=== PATIENT | male | born 1960 | race Two or more races ===

== ENCOUNTER 2017-02-28 13:09 | Emergency (ER) | payer MEDICARE, MEDICAID ==
[~2017-02-28] VITALS: Ht 172.7 cm; Wt 67.0 kg
[~2017-02-28 13:09] MED LIST: KEPPRA; KLONOPIN; LACO100T2 PO; PREVACID
[2017-02-28 14:13] LABS: BASOPHILS % 0.7 % (0.0-2.0); HEMATOCRIT. 45.3 % (42.0-52.0); HEMOGLOBIN. 15.5 g/dL (14.0-18.0); LYMPHOCYTES % 19.7 % (20.0-50.0); MEAN CORPUSCULAR HEMOGLOBIN 30.8 pg (28.0-32.0); MEAN CORPUSCULAR VOLUME 89.9 fL (80.0-94.0); MEAN PLATELET VOLUME 7.5 fl (7.4-10.4); MONOCYTES % 9.8 % (2.0-8.0); NEUTROPHILS % 66.8 % (40.0-76.0); PLATELET 202 x1000/uL (130-400); RED BLOOD CELL COUNT 5.05 mill/uL (4.7-6.1)
[2017-02-28 14:18] LABS: CHLORIDE 105 mEq/L (98-107)
[2017-02-28 14:27] LABS: CARBON DIOXIDE 28 mEq/L (21-32); ETHANOL BLOOD < 10 mg/dL
[2017-02-28 14:28] LABS: CARBAMAZEPINE < 0.5 ug/mL (4-12); PHENOBARBITAL < 2.1 ug/mL (15.0-40.0); PHENYTOIN < 0.4 ug/mL (10-20)
[2017-02-28] MEDS ORDERED: LEVETIRACETAM 500MG TABLET PO ONE (15:00)
[2017-02-28] MEDS ORDERED: CLONAZEPAM 0.5MG TABLET PO ONE (15:00)
[2017-02-28 15:24] VITALS: BP 127/60
== END 2017-02-28 15:26 | disposition home or self-care (01) ==
LOC: ER 13:51
DX: R56.9 Unspecified convulsions (principal); H92.02 Otalgia, left ear; Z88.8 Allergy status to other drugs, medicaments and biological substances
CPT/HCPCS: 36415; 80053; 80156; 80165; 80184; 80185; 85025; 99284; G0482

== ENCOUNTER 2017-09-12 12:42 | Emergency (ER) | payer MEDICARE, MEDICAID ==
[~2017-09-12] VITALS: Ht 172.7 cm; Wt 80.0 kg
[2017-09-12 13:16] LABS: BASOPHILS % 0.7 % (0.0-2.0); EOSINOPHILS % 1.8 % (0.0-5.0); HEMATOCRIT. 44.4 % (42.0-52.0); HEMOGLOBIN. 15.2 g/dL (14.0-18.0); MEAN CORPUSCULAR HEMOGLOBIN 31.1 pg (28.0-32.0); MEAN CORPUSCULAR VOLUME 91.1 fL (80.0-94.0); MONOCYTES % 10.1 % (2.0-8.0); NEUTROPHILS % 67.4 % (40.0-76.0); PLATELET 205 x1000/uL (130-400); RED BLOOD CELL COUNT 4.87 mill/uL (4.7-6.1)
[2017-09-12 13:22] LABS: CHLORIDE 104 mEq/L (98-107)
[2017-09-12 13:30] LABS: CARBON DIOXIDE 33 mEq/L (21-32)
[2017-09-12 13:57] VITALS: BP 143/79
== END 2017-09-12 14:07 | disposition home or self-care (01) ==
LOC: ER 13:06
DX: G40.409 Other generalized epilepsy and epileptic syndromes, not intractable, without status epilepticus (principal); Z88.8 Allergy status to other drugs, medicaments and biological substances
CPT/HCPCS: 36415; 80053; 85025; 99284

== ENCOUNTER 2019-08-25 13:09 | Emergency (ER) | payer MEDICARE, MEDICAID ==
[~2019-08-25] VITALS: Ht 165.1 cm; Wt 69.0 kg
[2019-08-25] MEDS ORDERED: LORAZEPAM 1MG TABLET PO ONE (14:00)
[2019-08-25 16:06] VITALS: BP 126/86
== END 2019-08-25 16:00 | disposition home or self-care (01) ==
LOC: ER 13:58
DX: G40.909 Epilepsy, unspecified, not intractable, without status epilepticus (principal); G04.90 Encephalitis and encephalomyelitis, unspecified; Z88.6 Allergy status to analgesic agent; Z88.8 Allergy status to other drugs, medicaments and biological substances
CPT/HCPCS: 99283

== ENCOUNTER 2020-08-05 11:21 | Inpatient (IN) | payer MEDICARE, MEDICAID ==
[~2020-08-05] VITALS: Ht 167.6 cm; Wt 65.0 kg
[2020-08-05] MEDS ORDERED: SODIUM CHLORIDE 0.9% 1,000 ML IV ONE (11:45)
[2020-08-05] MEDS ORDERED: LEVETIRACETAM 1000MG PREMIX 100 ML IV ONE (12:15)
[2020-08-05] MEDS ORDERED: SODIUM CHLORIDE 0.9% 1000ML BAG (SEPSIS BOLUS) IV ONE (12:15)
[2020-08-05 13:37] LABS: HEMATOCRIT. 44.3 % (42.0-52.0); HEMOGLOBIN. 14.9 g/dL (14.0-18.0); MEAN CORPUSCULAR HEMOGLOBIN 30.7 pg (28.0-32.0); MEAN CORPUSCULAR VOLUME 91.5 fL (80.0-94.0); MEAN PLATELET VOLUME 7.2 fl (7.4-10.4); PLATELET 228 x1000/uL (130-400); RED BLOOD CELL COUNT 4.84 mill/uL (4.7-6.1); RED CELL DISTRIBUTION WIDTH 12.6 % (11.6-14.6)
[2020-08-05 13:46] LABS: CHLORIDE 104 mEq/L (98-107)
[2020-08-05 14:16] LABS: PLATELET ESTIMATE NORMAL
[2020-08-05 15:05] LABS: CLARITY URINE CLOUDY (CLEAR); COLOR URINE ORANGE (YELLOW); KETONES URINE NEGATIVE (NEGATIVE); LEUKOCYTE ESTERASE URINE 2+ (NEGATIVE); NITRITE URINE NEGATIVE (NEGATIVE); OCCULT BLOOD URINE 2+ (NEGATIVE); PH URINE 6.5 (4.5-8.0); PROTEIN URINE 2+ (NEGATIVE); SPECIFIC GRAVITY URINE 1.033 (1.005-1.030); UROBILINOGEN URINE 0.2 E.U./dL (0.2-1.0)
[2020-08-05] MEDS ORDERED: CEFTRIAXONE 1 G PREMIX 50 ML IV ONE (15:30)
[2020-08-05 15:51] LABS: *BARBITURATES SCREEN URINE NEGATIVE (NEGATIVE)
[2020-08-05 15:52] LABS: *BENZODIAZEPINES SCREEN URINE NEGATIVE (NEGATIVE); *COCAINE SCREEN URINE NEGATIVE (NEGATIVE); METHADONE URINE SCREEN NEGATIVE (NEGATIVE); OPIATES URINE SCREEN PRESUMTIVE POSITIVE (NEGATIVE); PHENCYCLIDINE URINE SCREEN NEGATIVE (NEGATIVE)
[2020-08-05 15:53] LABS: *AMPHETAMINES SCREEN URINE NEGATIVE (NEGATIVE); CANNABINOID URINE SCREEN NEGATIVE (NEGATIVE)
[2020-08-05] MEDS ORDERED: MAGNESIUM/ALUMINUM HYDROXIDE/SIMETHICONE 30ML UDC PO PRN (17:00)
[2020-08-05] MEDS ORDERED: DIPHENHYDRAMINE 50MG/ML VIAL IV PRN (17:00)
[2020-08-05] MEDS ORDERED: CLONIDINE 0.1MG TABLET PO PRN (17:00)
[2020-08-05] MEDS ORDERED: NA PHOS,M-B/NA PHOS,DI-BA ENEMA 118ML PR PRN (17:00)
[2020-08-05] MEDS ORDERED: GUAIFENESIN 200MG/10ML SUGAR FREE UDC PO PRN (17:00)
[2020-08-05] MEDS ORDERED: DOCUSATE SODIUM 100MG CAPSULE PO PRN (17:00)
[2020-08-05] MEDS ORDERED: ACETAMINOPHEN 325MG TABLET PO PRN (17:00)
[2020-08-05] MEDS ORDERED: ACETAMINOPHEN 650MG SUPP PR PRN ×2 (17:00)
[2020-08-05] MEDS ORDERED: ONDANSETRON HCL 4MG/2ML INJ IV PRN (17:00)
[2020-08-05] MEDS ORDERED: ACETAMINOPHEN 650MG/20.3ML UDC GT PRN ×2 (17:00)
[2020-08-06] MEDS ORDERED: NON FORMULARY PATIENT HOME MED XX SCH ×2 (08:15)
[2020-08-06 11:41] VITALS: BP 125/68
[2020-08-06] MEDS ORDERED: FELBAMATE 600 MG PO SCH ×2 (13:30→22:30)
[2020-08-06] MEDS ORDERED: CLONAZEPAM 0.5MG TABLET PO SCH ×2 (13:30→22:30)
[2020-08-07] MEDS ORDERED: FELBAMATE 600 MG PO SCH (06:30)
[2020-08-07] MEDS ORDERED: CLONAZEPAM 0.5MG TABLET PO SCH (06:30)
== END 2020-08-06 12:51 | disposition short-term general hospital (02) | DRG 871 ==
LOC: ER 11:35 → MICUSO 14:58 → EDBEDREQ 15:02
PROVIDERS: ADMIT Family Medicine; ATTEND Family Medicine
DX: A41.9 Sepsis, unspecified organism (principal); G93.41 Metabolic encephalopathy; G40.802 Other epilepsy, not intractable, without status epilepticus; N39.0 Urinary tract infection, site not specified; K40.20 Bilateral inguinal hernia, without obstruction or gangrene, not specified as recurrent; K44.9 Diaphragmatic hernia without obstruction or gangrene; K57.30 Diverticulosis of large intestine without perforation or abscess without bleeding; N40.0 Benign prostatic hyperplasia without lower urinary tract symptoms; R62.50 Unspecified lack of expected normal physiological development in childhood; Z88.8 Allergy status to other drugs, medicaments and biological substances; Z79.899 Other long term (current) drug therapy; Z87.442 Personal history of urinary calculi
CPT/HCPCS: 36415; 71045; 74176; 80053; 80305; 81003; 83605; 84443; 84484; 85025; 87077; 87186; 93005; 96365; 99285; J0696; J1200; J2405; J7030

== ENCOUNTER 2024-08-14 06:44 | Emergency (ER) | payer MEDICARE, MEDICAID ==
[~2024-08-14] VITALS: Ht 167.6 cm; Wt 64.4 kg
[2024-08-14 06:47] VITALS: TEMP 98.6; O2SAT 98
[2024-08-14] MEDS: ACETAMINOPHEN 325MG TABLET PO ONE (08:33)
[2024-08-14 08:44] LABS: BASOPHILS % 0.9 % (0.0-2.0); EOSINOPHILS % 1.9 % (0.0-5.0); HEMATOCRIT. 42.6 % (42.0-52.0); HEMOGLOBIN. 14.3 g/dL (14.0-18.0); LYMPHOCYTES % 18.8 % (20.0-50.0); MEAN CORPUSCULAR HEMOGLOBIN 31.5 pg (28.0-32.0); MEAN CORPUSCULAR HGB CONC 33.5 g/dL (31.0-37.0); MEAN CORPUSCULAR VOLUME 94.1 fL (80.0-94.0); MEAN PLATELET VOLUME 7.1 fl (7.4-10.4); MONOCYTES % 10.1 % (2.0-8.0); NEUTROPHILS % 68.3 % (40.0-76.0); PLATELET 251 x1000/uL (130-400); RED BLOOD CELL COUNT 4.53 mill/uL (4.7-6.1); RED CELL DISTRIBUTION WIDTH 13.1 % (11.6-14.6); WHITE BLOOD COUNT 4.7 x1000/uL (4.5-11.0)
[2024-08-14 08:58] LABS: CHLORIDE 107 mEq/L (98-107); POTASSIUM 3.8 mEq/L (3.5-5.1); SODIUM 142 mEq/L (136-145)
[2024-08-14 08:59] LABS: CALCIUM 9.8 mg/dL (8.7-10.4); CARBON DIOXIDE 27 mEq/L (21-32)
[2024-08-14 09:04] LABS: CREATININE 0.7 mg/dL (0.6-1.3); GLUCOSE 96 mg/dL (70-105); UREA NITROGEN BLOOD 15 mg/dL (9-23)
[2024-08-14 09:06] LABS: ALANINE AMINOTRANSFERASE 24 IU/L (10-49); ALBUMIN 4.3 g/dL (3.2-4.8); ASPARTATE AMINOTRANSFERASE 27 IU/L (<34); BILIRUBIN DIRECT 0.1 mg/dL (<=3.0); BILIRUBIN TOTAL 0.5 mg/dL (0.1-1.0); PROTEIN TOTAL 7.3 g/dL (6.0-8.3)
[2024-08-14] MEDS ORDERED: ACET-2708 MT (09:08)
[2024-08-14 09:30] VITALS: BP 135/64; PULSE 62; RESP 17; O2SAT 98
== END 2024-08-14 09:43 | disposition home or self-care (01) ==
LOC: ER 06:44
DX: S01.01XA Laceration without foreign body of scalp, initial encounter (principal); G40.909 Epilepsy, unspecified, not intractable, without status epilepticus; Z79.899 Other long term (current) drug therapy; Z98.890 Other specified postprocedural states; X58.XXXA Exposure to other specified factors, initial encounter; Y93.89 Activity, other specified; Y92.89 Other specified places as the place of occurrence of the external cause; Y99.8 Other external cause status
CPT/HCPCS: 29130; 36415; 73140; 80053; 80076; 85025; 99283; 99284

== ENCOUNTER 2025-02-04 18:05 | Inpatient (IN) | payer MEDICARE, MEDICAID ==
[~2025-02-04] VITALS: Ht 167.6 cm; Wt 54.9 kg
[~2025-02-04 18:05] MED LIST changes: +CETI10CA2 PO; +CLON0.5T4 PO; +ESCI-7 PO; +FINA5TAB11 PO; -KEPPRA; -KLONOPIN; +OMEP40CA20 PO; +PERA4TAB PO; -PREVACID; +TAMS-54 PO; +[UNRECOGNIZED DRUG - CODE] PO
[2025-02-04 19:00] VITALS: BP 120/70; PULSE 96; RESP 18; TEMP 36.8
[2025-02-04] MEDS ORDERED: NON FORMULARY MED XX SCH (19:15)
[2025-02-04] MEDS ORDERED: DEXTROSE 50% WATER 50ML SYRINGE IV PRN ×2 (19:15)
[2025-02-04] MEDS ORDERED: CLONIDINE 0.1MG TABLET PO PRN (19:15)
[2025-02-04] MEDS ORDERED: LORAZEPAM 2MG/ML UD SYRINGE IV PRN ×2 (19:55)
[2025-02-04] MEDS ORDERED: ACETAMINOPHEN 325MG TABLET PO PRN (19:55)
[2025-02-04] MEDS ORDERED: ACETAMINOPHEN 650MG SUPP PR PRN (19:56)
[2025-02-04] MEDS: PERAMPANEL 4 MG PO SCH (21:00)
[2025-02-04] MEDS: BLOOD SUGAR DIAGNOSTIC STRIP TEST SCH (21:00)
[2025-02-04] MEDS: METOPROLOL TARTRATE 25MG TABLET PO SCH (22:13)
[2025-02-04] MEDS: FAMOTIDINE 20MG/2ML VIAL IV SCH (22:14)
[2025-02-04] MEDS: ACETAMINOPHEN 325MG TABLET PO PRN (22:17)
[2025-02-04] MEDS: INSULIN LISPRO 100 UNITS/ML SUBCUT SCH (23:04)
[2025-02-05] MEDS: LACOSAMIDE 300 MG in SODIUM CHLORIDE 0.9% 100 ML IV SCH (00:01)
[2025-02-05] MEDS: FELBAMATE 600 MG PO SCH ×3 (07:04→13:19)
[2025-02-05 08:00] VITALS: BP 119/67; PULSE 95; RESP 18; TEMP 36.8; O2SAT 97
[2025-02-05] MEDS: ASPIRIN 81MG TABLET PO SCH (08:43)
[2025-02-05] MEDS: ENOXAPARIN 40MG/0.4ML SYR SUBCUT SCH (08:43)
[2025-02-05] MEDS: MAGNESIUM OXIDE 400MG TABLET PO SCH (08:47)
[2025-02-05 13:31] LABS: BASOPHILS % 0.9 % (0.0-2.0); EOSINOPHILS % 6.1 % (0.0-5.0); HEMATOCRIT. 39.0 % (42.0-52.0); HEMOGLOBIN. 13.0 g/dL (14.0-18.0); LYMPHOCYTES % 10.5 % (20.0-50.0); MEAN PLATELET VOLUME 7.7 fl (7.4-10.4); MONOCYTES % 8.7 % (2.0-8.0); NEUTROPHILS % 73.8 % (40.0-76.0); PLATELET 371 x1000/uL (130-400); RED BLOOD CELL COUNT 4.26 mill/uL (4.7-6.1); RED CELL DISTRIBUTION WIDTH 14.2 % (11.6-14.6)
[2025-02-05 14:14] LABS: CREATININE 0.7 mg/dL (0.6-1.3); UREA NITROGEN BLOOD 19 mg/dL (9-23)
[2025-02-05 14:16] LABS: ASPARTATE AMINOTRANSFERASE 19 IU/L (<34); BILIRUBIN TOTAL 0.3 mg/dL (0.1-1.0); PROTEIN TOTAL 6.4 g/dL (6.0-8.3)
[2025-02-05 20:00] VITALS: BP 114/61; PULSE 90; RESP 18; TEMP 36.2; O2SAT 96
[2025-02-06 06:40] LABS: HEMATOCRIT. 37.6 % (42.0-52.0); HEMOGLOBIN. 12.6 g/dL (14.0-18.0); MEAN PLATELET VOLUME 7.9 fl (7.4-10.4); PLATELET 362 x1000/uL (130-400); RED BLOOD CELL COUNT 4.09 mill/uL (4.7-6.1); RED CELL DISTRIBUTION WIDTH 14.3 % (11.6-14.6)
[2025-02-06 07:02] LABS: CREATININE 0.7 mg/dL (0.6-1.3); UREA NITROGEN BLOOD 14 mg/dL (9-23)
[2025-02-06 07:03] LABS: CREATININE 0.6 mg/dL (0.6-1.3); UREA NITROGEN BLOOD 11 mg/dL (9-23)
[2025-02-06 07:04] LABS: ASPARTATE AMINOTRANSFERASE 26 IU/L (<34); PROTEIN TOTAL 6.6 g/dL (6.0-8.3)
[2025-02-06 07:05] LABS: BILIRUBIN TOTAL 0.3 mg/dL (0.1-1.0)
[2025-02-06 07:08] LABS: FOLIC ACID (FOLATE) SERUM 10.83 ng/mL (>5.38); VITAMIN B12 SERUM 1294 pg/mL (211-911)
[2025-02-06 08:00] VITALS: BP 138/81; PULSE 112; RESP 17; TEMP 36.5; O2SAT 96
[2025-02-06] MEDS: ACETAMINOPHEN 650MG/20.3ML UDC PO PRN (12:19)
[2025-02-06 13:04] LABS: EOSINOPHILS % MANUAL 7.0 % (0.0-5.0); LYMPHOCYTES % MANUAL 9.0 % (20.0-50.0); MONOCYTES % MANUAL 11.0 % (2.0-8.0); NEUTROPHILS % MANUAL 73.0 % (45.0-75.0); PLATELET ESTIMATE NORMAL
[2025-02-06 20:00] VITALS: BP 108/64; PULSE 92; RESP 18; TEMP 36.3; O2SAT 96
[2025-02-07 08:00] VITALS: BP 128/70; PULSE 104; RESP 20; TEMP 36.8; O2SAT 100
[2025-02-07] MEDS: POTASSIUM CHLORIDE 20MEQ/PACKET PO NR (09:26)
[2025-02-07 13:50] LABS: CREATININE 0.6 mg/dL (0.6-1.3); UREA NITROGEN BLOOD 13 mg/dL (9-23)
[2025-02-07 17:25] VITALS: PULSE 100; PULSE 98; RESP 20
[2025-02-07 19:07] LABS: PHOSPHORUS 2.4 mg/dL (2.5-4.9)
[2025-02-07 20:00] VITALS: BP 119/67; PULSE 94; RESP 19; TEMP 36.7; O2SAT 98
[2025-02-08] MEDS: ONDANSETRON HCL 4MG/2ML INJ IV PRN (00:46)
[2025-02-08 06:26] LABS: CREATININE 0.7 mg/dL (0.6-1.3); UREA NITROGEN BLOOD 16 mg/dL (9-23)
[2025-02-08 07:32] LABS: HEMATOCRIT. 36.2 % (42.0-52.0); HEMOGLOBIN. 11.8 g/dL (14.0-18.0); RED BLOOD CELL COUNT 3.95 mill/uL (4.7-6.1); RED CELL DISTRIBUTION WIDTH 14.4 % (11.6-14.6)
[2025-02-08 08:00] VITALS: BP 95/70; PULSE 77; RESP 18; TEMP 36.4; O2SAT 98
[2025-02-08 10:25] LABS: BAND% 3.0 % (1.0-6.0); EOSINOPHILS % MANUAL 4.0 % (0.0-5.0); LYMPHOCYTES % MANUAL 19.0 % (20.0-50.0); MONOCYTES % MANUAL 17.0 % (2.0-8.0); NEUTROPHILS % MANUAL 57.0 % (45.0-75.0)
[2025-02-08 10:26] LABS: PLATELET ESTIMATE NORMAL
[2025-02-08 10:27] LABS: MEAN PLATELET VOLUME 8.9 fl (7.4-10.4); PLATELET 148 x1000/uL (130-400)
[2025-02-08] MEDS: ERGOCALCIFEROL 50000UNITS CAPSULE PO SCH (17:09)
[2025-02-08 20:00] VITALS: BP 124/75; PULSE 105; RESP 18; TEMP 36.7; O2SAT 96
[2025-02-09 08:00] VITALS: BP 119/71; PULSE 73; RESP 18; TEMP 36.2; O2SAT 97
[2025-02-09 20:00] VITALS: BP 121/65; PULSE 85; RESP 18; TEMP 36.8; O2SAT 96
[2025-02-10 08:00] VITALS: BP 155/75; PULSE 78; RESP 18; TEMP 36.6; O2SAT 100
[2025-02-10] MEDS ORDERED: LORAZEPAM 2MG/ML UD SYRINGE IV PRN (10:45)
[2025-02-10] MEDS ORDERED: NALOXONE HCL 0.4MG/ML VIAL IV PRN (14:15)
[2025-02-10] MEDS: HYDROCODONE/ACETAMINOPHEN 5/325MG TABLET PO PRN (15:02)
[2025-02-10] MEDS: DOCUSATE SODIUM SUGAR FREE 100MG/10ML UDC PO PRN (18:06)
[2025-02-10 20:00] VITALS: BP 148/69; PULSE 86; RESP 18; TEMP 37; O2SAT 98
[2025-02-10] MEDS: LORAZEPAM 2MG/ML UD SYRINGE IV PRN (22:50)
[2025-02-11 08:00] VITALS: BP 120/70; PULSE 70; RESP 18; TEMP 36.6; O2SAT 98
[2025-02-11 20:00] VITALS: BP 113/71; PULSE 86; RESP 19; TEMP 36.5; O2SAT 98
[2025-02-11 22:16] LABS: BASOPHILS % 0.5 % (0.0-2.0); EOSINOPHILS % 1.4 % (0.0-5.0); HEMATOCRIT. 36.0 % (42.0-52.0); HEMOGLOBIN. 11.9 g/dL (14.0-18.0); LYMPHOCYTES % 11.8 % (20.0-50.0); MEAN PLATELET VOLUME 7.7 fl (7.4-10.4); MONOCYTES % 7.6 % (2.0-8.0); NEUTROPHILS % 78.7 % (40.0-76.0); PLATELET 465 x1000/uL (130-400); RED BLOOD CELL COUNT 3.89 mill/uL (4.7-6.1); RED CELL DISTRIBUTION WIDTH 14.4 % (11.6-14.6)
[2025-02-12] MEDS: ENOXAPARIN 40MG/0.4ML SYR SUBCUT SCH (07:46)
[2025-02-12 08:00] VITALS: BP 110/69; PULSE 85; RESP 19; TEMP 36.4; O2SAT 98
[2025-02-12 20:00] VITALS: BP 132/70; PULSE 89; RESP 19; TEMP 36.7; O2SAT 99
[2025-02-12] MEDS: FELBAMATE 600 MG PO SCH (21:17)
[2025-02-13 07:01] LABS: BASOPHILS % 0.4 % (0.0-2.0); EOSINOPHILS % 1.5 % (0.0-5.0); HEMATOCRIT. 35.0 % (42.0-52.0); HEMOGLOBIN. 11.6 g/dL (14.0-18.0); LYMPHOCYTES % 13.7 % (20.0-50.0); MEAN PLATELET VOLUME 7.8 fl (7.4-10.4); MONOCYTES % 10.2 % (2.0-8.0); NEUTROPHILS % 74.2 % (40.0-76.0); PLATELET 437 x1000/uL (130-400); RED BLOOD CELL COUNT 3.84 mill/uL (4.7-6.1); RED CELL DISTRIBUTION WIDTH 14.6 % (11.6-14.6)
[2025-02-13 07:19] LABS: CREATININE 0.7 mg/dL (0.6-1.3); UREA NITROGEN BLOOD 19 mg/dL (9-23)
[2025-02-13 08:00] VITALS: BP 122/76; PULSE 96; RESP 20; TEMP 36.6; O2SAT 96
[2025-02-13 20:00] VITALS: BP 100/61; PULSE 94; RESP 20; TEMP 36.9; O2SAT 98
[2025-02-13] MEDS: FAMOTIDINE 20MG TABLET PO SCH (20:30)
[2025-02-13] MEDS: LORAZEPAM 2MG/ML UD SYRINGE IM NR (22:42)
[2025-02-14 08:00] VITALS: BP 136/70; PULSE 80; RESP 19; TEMP 36.4; O2SAT 98
[2025-02-14] MEDS: RISPERIDONE 1MG TABLET PO SCH (11:13)
[2025-02-14] MEDS ORDERED: LORAZEPAM 2MG/ML UD SYRINGE IM PRN (13:45)
[2025-02-14] MEDS ORDERED: ONDANSETRON HCL 4MG TABLET PO PRN (18:15)
[2025-02-14 20:00] VITALS: BP 111/75; PULSE 107; RESP 18; TEMP 36.3; O2SAT 98
[2025-02-15 01:40] VITALS: BP 128/80; PULSE 82; RESP 20; TEMP 36.3; O2SAT 98
[2025-02-15] MEDS: HALOPERIDOL LACTATE 5MG/ML VIAL IM PRN (01:41)
[2025-02-15] MEDS: ACETAMINOPHEN 650MG/20.3ML UDC PO PRN (04:12)
[2025-02-15 08:00] VITALS: BP 122/77; PULSE 115; RESP 18; TEMP 36.3; O2SAT 96
[2025-02-15 09:34] LABS: BASOPHILS % 1.0 % (0.0-2.0); EOSINOPHILS % 1.1 % (0.0-5.0); HEMATOCRIT. 35.3 % (42.0-52.0); HEMOGLOBIN. 12.1 g/dL (14.0-18.0); LYMPHOCYTES % 16.6 % (20.0-50.0); MEAN PLATELET VOLUME 7.4 fl (7.4-10.4); MONOCYTES % 12.5 % (2.0-8.0); NEUTROPHILS % 68.8 % (40.0-76.0); PLATELET 465 x1000/uL (130-400); RED BLOOD CELL COUNT 3.86 mill/uL (4.7-6.1); RED CELL DISTRIBUTION WIDTH 14.7 % (11.6-14.6)
[2025-02-15 09:44] LABS: CREATININE 0.8 mg/dL (0.6-1.3)
[2025-02-15 09:45] LABS: ASPARTATE AMINOTRANSFERASE 32 IU/L (<34); UREA NITROGEN BLOOD 17 mg/dL (9-23)
[2025-02-15 09:47] LABS: BILIRUBIN TOTAL 0.3 mg/dL (0.1-1.0); PROTEIN TOTAL 6.7 g/dL (6.0-8.3)
[2025-02-15] MEDS: DIATR MEGLU/DIATRIZOATE SOLN 30ML PO SCH (14:22)
[2025-02-15 20:00] VITALS: BP 104/66; PULSE 83; RESP 18; TEMP 35.9; O2SAT 100
[2025-02-15] MEDS: RISPERIDONE 1MG TABLET PO SCH (21:45)
[2025-02-16] MEDS: LORAZEPAM 2MG/ML UD SYRINGE IM PRN (03:19)
[2025-02-16 08:00] VITALS: BP 111/70; PULSE 83; RESP 20; TEMP 36.6; O2SAT 100
[2025-02-16] MEDS ORDERED: TRAZODONE HCL 50MG TABLET PO PRN (12:30)
[2025-02-16 13:30] LABS: CLARITY URINE CLEAR (CLEAR); COLOR URINE YELLOW (YELLOW); GLUCOSE URINE NEGATIVE (NEGATIVE); KETONES URINE NEGATIVE (NEGATIVE); LEUKOCYTE ESTERASE URINE NEGATIVE (NEGATIVE); NITRITE URINE NEGATIVE (NEGATIVE); OCCULT BLOOD URINE NEGATIVE (NEGATIVE); PH URINE 7.0 (4.5-8.0); PROTEIN URINE NEGATIVE (NEGATIVE); SPECIFIC GRAVITY URINE 1.012 (1.005-1.030); UROBILINOGEN URINE 0.2 E.U./dL (0.2-1.0)
[2025-02-16] MEDS: DOCUSATE SODIUM SUGAR FREE 100MG/10ML UDC PO SCH (13:53)
[2025-02-16 22:00] VITALS: BP 119/66; PULSE 98; RESP 16; TEMP 36.4; O2SAT 98
[2025-02-16] MEDS: SENNOSIDES 8.6MG TABLET PO SCH (22:14)
[2025-02-17 08:00] VITALS: BP 131/71; PULSE 80; RESP 18; TEMP 36.5; O2SAT 98
[2025-02-17 09:25] LABS: BASOPHILS % 1.4 % (0.0-2.0); EOSINOPHILS % 1.3 % (0.0-5.0); HEMATOCRIT. 35.8 % (42.0-52.0); HEMOGLOBIN. 12.0 g/dL (14.0-18.0); LYMPHOCYTES % 16.6 % (20.0-50.0); MEAN PLATELET VOLUME 7.5 fl (7.4-10.4); MONOCYTES % 12.3 % (2.0-8.0); NEUTROPHILS % 68.4 % (40.0-76.0); PLATELET 459 x1000/uL (130-400); RED BLOOD CELL COUNT 3.88 mill/uL (4.7-6.1); RED CELL DISTRIBUTION WIDTH 15.0 % (11.6-14.6)
[2025-02-17 09:41] LABS: CREATININE 0.7 mg/dL (0.6-1.3); UREA NITROGEN BLOOD 13 mg/dL (9-23)
[2025-02-17 09:43] LABS: ASPARTATE AMINOTRANSFERASE 26 IU/L (<34)
[2025-02-17 09:44] LABS: BILIRUBIN TOTAL 0.3 mg/dL (0.1-1.0); PROTEIN TOTAL 6.6 g/dL (6.0-8.3)
[2025-02-17] MEDS ORDERED: BISACODYL 10MG SUPP PR PRN (13:45)
[2025-02-17] MEDS: BISACODYL 10MG SUPP PR NR (14:13)
[2025-02-17 20:00] VITALS: BP 120/69; PULSE 81; RESP 20; TEMP 36.6; O2SAT 100
[2025-02-17] MEDS ORDERED: IOHEXOL-300 100 ML BOTTLE ONE (23:46)
[2025-02-18] MEDS ORDERED: LORAZEPAM 2MG/ML UD SYRINGE IM PRN (07:30)
[2025-02-18 08:00] VITALS: BP 118/62; PULSE 72; RESP 18; TEMP 36.7; O2SAT 98
[2025-02-18] MEDS: SODIUM CHLORIDE 0.9% 1,000 ML IV SCH (11:11)
[2025-02-18] MEDS: CEFTRIAXONE 1GM/50ML 50 ML IV SCH (11:11)
[2025-02-18] MEDS: METRONIDAZOLE 500 MG PREMIX 100 ML IV SCH (13:36)
[2025-02-18] MEDS: FINASTERIDE 5MG TABLET PO SCH (16:53)
[2025-02-18] MEDS: TAMSULOSIN HCL 0.4MG SR CAPSULE PO SCH (16:58)
[2025-02-18] MEDS: HYDROCODONE/ACETAMINOPHEN 5/325MG TABLET PO PRN (16:59)
[2025-02-18 20:00] VITALS: BP 106/56; PULSE 68; RESP 17; TEMP 36.4; O2SAT 98
[2025-02-19 07:17] LABS: BASOPHILS % 1.1 % (0.0-2.0); EOSINOPHILS % 1.3 % (0.0-5.0); HEMATOCRIT. 35.7 % (42.0-52.0); HEMOGLOBIN. 11.6 g/dL (14.0-18.0); LYMPHOCYTES % 16.6 % (20.0-50.0); MEAN PLATELET VOLUME 7.3 fl (7.4-10.4); MONOCYTES % 11.0 % (2.0-8.0); NEUTROPHILS % 70.0 % (40.0-76.0); PLATELET 407 x1000/uL (130-400); RED BLOOD CELL COUNT 3.89 mill/uL (4.7-6.1); RED CELL DISTRIBUTION WIDTH 15.0 % (11.6-14.6)
[2025-02-19 07:27] LABS: CREATININE 0.6 mg/dL (0.6-1.3); UREA NITROGEN BLOOD 12 mg/dL (9-23)
[2025-02-19 08:00] VITALS: BP 124/68; PULSE 89; RESP 19; TEMP 36.8; O2SAT 98
[2025-02-19] MEDS: LACOSAMIDE 100MG/10ML ORAL SOLN PO SCH (08:33)
[2025-02-19 20:00] VITALS: BP 104/65; PULSE 89; RESP 19; TEMP 36.8; O2SAT 96
[2025-02-20] MEDS: LORAZEPAM 2MG/ML UD SYRINGE IM PRN (01:13)
[2025-02-20 07:05] LABS: BASOPHILS % 1.2 % (0.0-2.0); EOSINOPHILS % 1.9 % (0.0-5.0); HEMATOCRIT. 35.0 % (42.0-52.0); HEMOGLOBIN. 11.6 g/dL (14.0-18.0); LYMPHOCYTES % 18.5 % (20.0-50.0); MEAN PLATELET VOLUME 7.3 fl (7.4-10.4); MONOCYTES % 14.5 % (2.0-8.0); NEUTROPHILS % 63.9 % (40.0-76.0); PLATELET 375 x1000/uL (130-400); RED BLOOD CELL COUNT 3.78 mill/uL (4.7-6.1); RED CELL DISTRIBUTION WIDTH 14.9 % (11.6-14.6)
[2025-02-20 07:26] LABS: CREATININE 0.6 mg/dL (0.6-1.3); UREA NITROGEN BLOOD 7 mg/dL (9-23)
[2025-02-20 07:28] LABS: ASPARTATE AMINOTRANSFERASE 17 IU/L (<34); BILIRUBIN TOTAL 0.3 mg/dL (0.1-1.0); PROTEIN TOTAL 5.6 g/dL (6.0-8.3)
[2025-02-20 08:00] VITALS: BP 105/63; PULSE 78; RESP 18; TEMP 36.5; O2SAT 100
[2025-02-20] MEDS: CLONAZEPAM 0.5MG TABLET PO SCH (14:00)
[2025-02-20 20:00] VITALS: BP 115/64; PULSE 110; RESP 18; TEMP 36.6; O2SAT 95
[2025-02-21] MEDS: METRONIDAZOLE 500MG TABLET PO SCH (06:04)
[2025-02-21 06:58] LABS: BASOPHILS % 1.0 % (0.0-2.0); EOSINOPHILS % 2.0 % (0.0-5.0); HEMATOCRIT. 35.1 % (42.0-52.0); HEMOGLOBIN. 11.7 g/dL (14.0-18.0); LYMPHOCYTES % 13.9 % (20.0-50.0); MEAN PLATELET VOLUME 7.5 fl (7.4-10.4); MONOCYTES % 13.3 % (2.0-8.0); NEUTROPHILS % 69.8 % (40.0-76.0); PLATELET 372 x1000/uL (130-400); RED BLOOD CELL COUNT 3.79 mill/uL (4.7-6.1); RED CELL DISTRIBUTION WIDTH 14.7 % (11.6-14.6)
[2025-02-21 07:16] LABS: CREATININE 0.7 mg/dL (0.6-1.3); UREA NITROGEN BLOOD 14 mg/dL (9-23)
[2025-02-21 07:18] LABS: ASPARTATE AMINOTRANSFERASE 22 IU/L (<34)
[2025-02-21 07:19] LABS: BILIRUBIN TOTAL 0.3 mg/dL (0.1-1.0); PROTEIN TOTAL 5.8 g/dL (6.0-8.3)
[2025-02-21 08:00] VITALS: BP 97/67; PULSE 106; RESP 20; TEMP 36.7; O2SAT 96
[2025-02-21] MEDS: LORAZEPAM 2MG/ML UD SYRINGE IM PRN (14:58)
[2025-02-21 15:36] VITALS: BP 133/76; PULSE 115; TEMP 97.7; O2SAT 98
== END 2025-02-21 15:51 | disposition short-term general hospital (02) | DRG 70 ==
PROVIDERS: ADMIT Physical Medicine & Rehabilitation Spinal Cord Injury Medicine; ATTEND Family Medicine Adult Medicine
DX: G93.41 Metabolic encephalopathy (principal); A41.9 Sepsis, unspecified organism; G82.50 Quadriplegia, unspecified; I21.4 Non-ST elevation (NSTEMI) myocardial infarction; J96.00 Acute respiratory failure, unspecified whether with hypoxia or hypercapnia; R65.21 Severe sepsis with septic shock; N17.0 Acute kidney failure with tubular necrosis; J18.9 Pneumonia, unspecified organism; E87.0 Hyperosmolality and hypernatremia; E72.20 Disorder of urea cycle metabolism, unspecified; E87.20 Acidosis, unspecified; R47.01 Aphasia; G40.919 Epilepsy, unspecified, intractable, without status epilepticus; N39.0 Urinary tract infection, site not specified; R62.50 Unspecified lack of expected normal physiological development in childhood; E87.6 Hypokalemia; D69.6 Thrombocytopenia, unspecified; D64.9 Anemia, unspecified; F32.A Depression, unspecified; I10 Essential (primary) hypertension; R13.10 Dysphagia, unspecified; R26.9 Unspecified abnormalities of gait and mobility; R53.81 Other malaise; R73.9 Hyperglycemia, unspecified; E55.9 Vitamin D deficiency, unspecified; R41.82 Altered mental status, unspecified; R94.01 Abnormal electroencephalogram [EEG]; F20.9 Schizophrenia, unspecified; K57.30 Diverticulosis of large intestine without perforation or abscess without bleeding; D18.03 Hemangioma of intra-abdominal structures; K40.20 Bilateral inguinal hernia, without obstruction or gangrene, not specified as recurrent; K76.9 Liver disease, unspecified; K80.20 Calculus of gallbladder without cholecystitis without obstruction; K82.8 Other specified diseases of gallbladder; N20.0 Calculus of kidney; N32.89 Other specified disorders of bladder; Z86.61 Personal history of infections of the central nervous system; Z91.81 History of falling
CPT/HCPCS: 36415; 73522; 74176; 74177; 76705; 80048; 80053; 80339; 81003; 82140; 82306; 82550; 82607; 82728; 82746; 82962; 83036; 83540; 83550; 83735; 84100; 84134; 84145; 84443; 85025; 92523; 92610; 93005; 97110; 97116; 97162; 97166; 97530; 97535; A4606; J0696; J1308; J1630; J1650; J1815; J2060; J2405; J3490; J7030; J7050; Q0162; Q9963; Q9967

== ENCOUNTER 2025-02-21 16:24 | Inpatient (IN) | payer MEDICARE, MEDICAID ==
[~2025-02-21] VITALS: Ht 167.6 cm; Wt 59.9 kg
[2025-02-21 16:00] VITALS: BP 110/60; PULSE 104; RESP 18; TEMP 36.8; O2SAT 97
[2025-02-21] MEDS ORDERED: ONDANSETRON HCL 4MG/2ML INJ IV PRN (17:00)
[2025-02-21] MEDS ORDERED: ACETAMINOPHEN 325MG TABLET PO PRN (17:00)
[2025-02-21] MEDS ORDERED: CLONIDINE 0.1MG TABLET PO PRN (17:00)
[2025-02-21] MEDS ORDERED: DOCUSATE SODIUM 100MG CAPSULE PO PRN (17:00)
[2025-02-21] MEDS ORDERED: IPRATROPIUM/ALBUTEROL 0.5-3(2.5)MG/3ML NEB HHN PRN (17:00)
[2025-02-21 20:00] VITALS: BP 134/73; PULSE 98; RESP 19; TEMP 36.6; O2SAT 100
[2025-02-21] MEDS: FELBAMATE 600 MG PO SCH (21:52)
[2025-02-21] MEDS: METRONIDAZOLE 500MG TABLET PO SCH (21:52)
[2025-02-21] MEDS: PERAMPANEL 4 MG PO SCH (21:52)
[2025-02-21] MEDS: CLONAZEPAM 0.5MG TABLET PO SCH (21:52)
[2025-02-21] MEDS: LACOSAMIDE 100MG/10ML ORAL SOLN PO SCH (21:56)
[2025-02-22] VITALS: BP 122/75; PULSE 95; RESP 19; TEMP 36.7; O2SAT 100
[2025-02-22 04:00] VITALS: BP 130/76; PULSE 107; RESP 19; TEMP 36.9; O2SAT 99
[2025-02-22] MEDS: FELBAMATE 600 MG PO SCH ×2 (06:20→12:35)
[2025-02-22 08:00] VITALS: BP 102/64; PULSE 91; RESP 17; TEMP 36.7; O2SAT 98
[2025-02-22] MEDS: METOPROLOL TARTRATE 25MG TABLET PO SCH (09:00)
[2025-02-22 09:13] LABS: CREATININE 0.6 mg/dL (0.6-1.3)
[2025-02-22 09:14] LABS: UREA NITROGEN BLOOD 8 mg/dL (9-23)
[2025-02-22] MEDS: POTASSIUM CHLORIDE 20MEQ TABLET SR PO SCH (11:18)
[2025-02-22 12:00] VITALS: BP 103/61; PULSE 90; RESP 18; TEMP 36.7; O2SAT 97
[2025-02-22] MEDS: ACETAMINOPHEN 325MG TABLET PO PRN (12:33)
[2025-02-22] MEDS: CEFTRIAXONE 2GM/50ML 50 ML IV SCH (12:39)
[2025-02-22 12:52] LABS: BASOPHILS % 0.6 % (0.0-2.0); EOSINOPHILS % 2.0 % (0.0-5.0); HEMATOCRIT. 34.4 % (42.0-52.0); HEMOGLOBIN. 11.3 g/dL (14.0-18.0); LYMPHOCYTES % 11.1 % (20.0-50.0); MEAN PLATELET VOLUME 8.4 fl (7.4-10.4); MONOCYTES % 13.9 % (2.0-8.0); NEUTROPHILS % 72.4 % (40.0-76.0); PLATELET 334 x1000/uL (130-400); RED BLOOD CELL COUNT 3.70 mill/uL (4.7-6.1); RED CELL DISTRIBUTION WIDTH 14.9 % (11.6-14.6)
[2025-02-22] MEDS: MAGNESIUM 2 G PREMIX 50 ML IV NR (14:13)
[2025-02-22 16:34] VITALS: BP 104/72; PULSE 84; RESP 16; TEMP 36.8; O2SAT 96
[2025-02-22 20:00] VITALS: BP 108/67; PULSE 89; RESP 18; TEMP 36.7; O2SAT 99
[2025-02-22] MEDS: CLONAZEPAM 1MG TABLET PO SCH (23:17)
[2025-02-23] VITALS: BP 135/82; PULSE 108; RESP 18; TEMP 36.9; O2SAT 98
[2025-02-23 04:00] VITALS: BP 129/76; PULSE 101; RESP 18; TEMP 36.7; O2SAT 100
[2025-02-23 07:15] LABS: BASOPHILS % 0.6 % (0.0-2.0); EOSINOPHILS % 2.6 % (0.0-5.0); HEMATOCRIT. 35.7 % (42.0-52.0); HEMOGLOBIN. 12.1 g/dL (14.0-18.0); LYMPHOCYTES % 8.7 % (20.0-50.0); MEAN PLATELET VOLUME 7.8 fl (7.4-10.4); MONOCYTES % 9.0 % (2.0-8.0); NEUTROPHILS % 79.1 % (40.0-76.0); PLATELET 378 x1000/uL (130-400); RED BLOOD CELL COUNT 3.92 mill/uL (4.7-6.1); RED CELL DISTRIBUTION WIDTH 14.5 % (11.6-14.6)
[2025-02-23 07:19] LABS: CREATININE 0.6 mg/dL (0.6-1.3); UREA NITROGEN BLOOD 12 mg/dL (9-23)
[2025-02-23 08:00] VITALS: BP 128/77; PULSE 91; RESP 18; TEMP 36.5; O2SAT 98
[2025-02-23 12:00] VITALS: BP 113/67; PULSE 81; RESP 18; TEMP 36.6; O2SAT 97
[2025-02-23 16:00] VITALS: BP 101/56; PULSE 63; RESP 18; TEMP 36.5; O2SAT 100
[2025-02-23 20:00] VITALS: BP 119/69; PULSE 89; RESP 20; TEMP 35.7; O2SAT 96
[2025-02-24] VITALS: BP 111/58; PULSE 81; RESP 20; TEMP 36.2; O2SAT 99
[2025-02-24 04:00] VITALS: BP 119/61; PULSE 76; RESP 20; TEMP 35.8; O2SAT 98
[2025-02-24 08:00] VITALS: BP 122/72; PULSE 83; RESP 19; TEMP 35.8; O2SAT 99
[2025-02-24 08:07] LABS: BASOPHILS % 0.7 % (0.0-2.0); EOSINOPHILS % 3.1 % (0.0-5.0); HEMATOCRIT. 37.5 % (42.0-52.0); HEMOGLOBIN. 12.2 g/dL (14.0-18.0); LYMPHOCYTES % 13.9 % (20.0-50.0); MEAN PLATELET VOLUME 7.9 fl (7.4-10.4); MONOCYTES % 13.6 % (2.0-8.0); NEUTROPHILS % 68.7 % (40.0-76.0); PLATELET 378 x1000/uL (130-400); RED BLOOD CELL COUNT 4.06 mill/uL (4.7-6.1); RED CELL DISTRIBUTION WIDTH 14.8 % (11.6-14.6)
[2025-02-24 08:34] LABS: CREATININE 0.6 mg/dL (0.6-1.3); UREA NITROGEN BLOOD 14 mg/dL (9-23)
[2025-02-24 12:00] VITALS: BP 122/70; PULSE 73; RESP 16; TEMP 36.2; O2SAT 99
[2025-02-24 16:00] VITALS: BP 109/66; PULSE 82; RESP 19; TEMP 36.2; O2SAT 100
[2025-02-24 20:00] VITALS: BP 115/62; PULSE 88; RESP 18; TEMP 36.6; O2SAT 99
[2025-02-25] VITALS: BP 111/69; PULSE 90; RESP 18; TEMP 36.7; O2SAT 99
[2025-02-25 04:00] VITALS: BP 114/68; PULSE 78; RESP 18; TEMP 37.2; O2SAT 98
[2025-02-25 09:00] LABS: BASOPHILS % 0.8 % (0.0-2.0); EOSINOPHILS % 3.5 % (0.0-5.0); HEMATOCRIT. 37.1 % (42.0-52.0); HEMOGLOBIN. 12.5 g/dL (14.0-18.0); LYMPHOCYTES % 11.0 % (20.0-50.0); MEAN PLATELET VOLUME 7.5 fl (7.4-10.4); MONOCYTES % 11.1 % (2.0-8.0); NEUTROPHILS % 73.6 % (40.0-76.0); PLATELET 362 x1000/uL (130-400); RED BLOOD CELL COUNT 4.06 mill/uL (4.7-6.1); RED CELL DISTRIBUTION WIDTH 14.5 % (11.6-14.6)
[2025-02-25 09:10] LABS: INR 1.0
[2025-02-25 09:19] LABS: CREATININE 0.7 mg/dL (0.6-1.3); UREA NITROGEN BLOOD 14 mg/dL (9-23)
[2025-02-25 09:21] LABS: ASPARTATE AMINOTRANSFERASE 23 IU/L (<34); BILIRUBIN DIRECT < 0.1 mg/dL (<=3.0)
[2025-02-25 09:22] LABS: BILIRUBIN TOTAL 0.3 mg/dL (0.1-1.0); PROTEIN TOTAL 6.3 g/dL (6.0-8.3)
[2025-02-25 16:00] VITALS: BP 105/66; PULSE 70; RESP 18; TEMP 36.5; O2SAT 98
[2025-02-25 20:00] VITALS: BP 125/67; PULSE 92; RESP 18; TEMP 37.2; O2SAT 98
[2025-02-25 23:42] VITALS: BP 127/70; PULSE 81; RESP 17; TEMP 37; O2SAT 98
[2025-02-26 04:00] VITALS: BP 113/66; PULSE 74; RESP 18; TEMP 36.3; O2SAT 98
[2025-02-26 08:00] VITALS: BP 113/67; PULSE 82; RESP 16; TEMP 36.2; O2SAT 96
[2025-02-26 12:00] VITALS: BP 108/64; PULSE 76; RESP 18; TEMP 36.6; O2SAT 97
[2025-02-26 16:00] VITALS: BP 115/61; PULSE 78; RESP 18; TEMP 36.6; O2SAT 97
[2025-02-26 20:00] VITALS: BP 116/58; PULSE 94; RESP 19; TEMP 35.9; O2SAT 99
[2025-02-27] VITALS: BP 121/74; PULSE 96; RESP 20; TEMP 36.6; O2SAT 97
[2025-02-27 04:00] VITALS: BP 127/72; PULSE 78; RESP 20; TEMP 36; O2SAT 98
[2025-02-27 08:00] VITALS: BP 113/61; PULSE 70; RESP 18; TEMP 36.5; O2SAT 97
[2025-02-27 12:00] VITALS: BP 129/68; PULSE 82; RESP 18; TEMP 36.6; O2SAT 98
[2025-02-27 16:00] VITALS: BP 108/69; PULSE 80; RESP 18; TEMP 36.6; O2SAT 100
[2025-02-27 20:00] VITALS: BP 120/70; PULSE 84; RESP 20; TEMP 35.7; O2SAT 97
[2025-02-28] VITALS (7 sets, daily range): BP systolic 112–134; BP diastolic 60–81; PULSE 72–95; RESP 15–20; TEMP 36.3–37; O2SAT 96–100
[2025-02-28 16:10] LABS: BASOPHILS % 0.9 % (0.0-2.0); EOSINOPHILS % 5.4 % (0.0-5.0); HEMATOCRIT. 36.8 % (42.0-52.0); HEMOGLOBIN. 12.3 g/dL (14.0-18.0); LYMPHOCYTES % 16.0 % (20.0-50.0); MEAN PLATELET VOLUME 7.5 fl (7.4-10.4); MONOCYTES % 13.4 % (2.0-8.0); NEUTROPHILS % 64.3 % (40.0-76.0); PLATELET 339 x1000/uL (130-400); RED BLOOD CELL COUNT 3.98 mill/uL (4.7-6.1); RED CELL DISTRIBUTION WIDTH 14.4 % (11.6-14.6)
[2025-02-28 16:27] LABS: CREATININE 0.7 mg/dL (0.6-1.3); UREA NITROGEN BLOOD 13 mg/dL (9-23)
[2025-02-28 16:29] LABS: ASPARTATE AMINOTRANSFERASE 19 IU/L (<34); BILIRUBIN TOTAL 0.2 mg/dL (0.1-1.0)
[2025-02-28 16:30] LABS: PROTEIN TOTAL 6.4 g/dL (6.0-8.3)
[2025-03-01] VITALS: BP 99/64; PULSE 109; RESP 20; TEMP 36.7; O2SAT 98
[2025-03-01 04:00] VITALS: BP 102/60; PULSE 74; RESP 18; TEMP 36.3; O2SAT 97
[2025-03-01 08:00] VITALS: BP 122/74; PULSE 74; RESP 18; TEMP 36.9; O2SAT 97
[2025-03-01 12:00] VITALS: BP 122/76; PULSE 74; RESP 18; TEMP 36.2; O2SAT 98
[2025-03-01 16:00] VITALS: BP 119/66; PULSE 71; RESP 18; TEMP 36.8; O2SAT 98
[2025-03-01 20:00] VITALS: BP 109/62; PULSE 77; RESP 18; TEMP 35.9; O2SAT 99
[2025-03-02] VITALS: BP 106/64; PULSE 69; RESP 20; TEMP 36.2; O2SAT 97
[2025-03-02 04:00] VITALS: BP 124/68; PULSE 71; RESP 18; TEMP 36.3; O2SAT 97
[2025-03-02 08:00] VITALS: BP 118/68; PULSE 70; RESP 17; TEMP 36.1; O2SAT 97
[2025-03-02 12:00] VITALS: BP 113/65; PULSE 68; RESP 17; TEMP 36.2; O2SAT 98
[2025-03-02 16:00] VITALS: BP 112/61; PULSE 67; RESP 17; TEMP 36.5; O2SAT 98
[2025-03-02 20:00] VITALS: BP 114/65; PULSE 73; RESP 20; TEMP 36.2; O2SAT 99
[2025-03-03] VITALS: BP 120/55; PULSE 85; RESP 20; TEMP 36.2; O2SAT 98
[2025-03-03 04:00] VITALS: BP 121/74; PULSE 71; RESP 20; TEMP 36; O2SAT 97
[2025-03-03 08:00] VITALS: BP 125/69; PULSE 75; RESP 18; TEMP 36; O2SAT 97
[2025-03-03 12:00] VITALS: BP 105/62; PULSE 68; RESP 18; TEMP 36.5; O2SAT 99
[2025-03-03 16:00] VITALS: BP 113/65; PULSE 78; RESP 18; TEMP 36.3; O2SAT 99
[2025-03-03 20:00] VITALS: BP 116/68; PULSE 90; RESP 18; TEMP 36.6; O2SAT 100
[2025-03-04] VITALS: BP 116/54; PULSE 97; RESP 18; TEMP 36.8; O2SAT 100
[2025-03-04 05:12] VITALS: BP 143/68; PULSE 79; RESP 18; TEMP 36.8; O2SAT 98
[2025-03-04 08:00] VITALS: BP 115/61; PULSE 86; RESP 20; TEMP 36.6; O2SAT 100
[2025-03-04 12:00] VITALS: BP 112/57; PULSE 82; RESP 20; TEMP 36.4; O2SAT 100
[2025-03-04 16:00] VITALS: BP 117/69; PULSE 84; RESP 20; TEMP 36.3; O2SAT 100
[2025-03-04 20:00] VITALS: BP 119/66; PULSE 74; RESP 18; TEMP 36.6; O2SAT 98
[2025-03-04] MEDS: CLONAZEPAM 1MG TABLET PO SCH (22:52)
[2025-03-05] VITALS: BP 124/66; PULSE 72; RESP 17; TEMP 36.5; O2SAT 97
[2025-03-05 04:00] VITALS: BP 120/70; PULSE 72; RESP 18; TEMP 37.1; O2SAT 98
[2025-03-05 08:00] VITALS: BP 113/67; PULSE 76; RESP 18; TEMP 36.3; O2SAT 97
[2025-03-05 09:09] VITALS: PULSE 80
== END 2025-03-05 09:30 | DRG 871 ==
LOC: 6WST 16:24 → 6EST 03-01 04:13
PROVIDERS: ADMIT Family Medicine Adult Medicine; ATTEND Family Medicine Adult Medicine
DX: A41.9 Sepsis, unspecified organism (principal); G82.50 Quadriplegia, unspecified; R65.21 Severe sepsis with septic shock; J18.9 Pneumonia, unspecified organism; J96.00 Acute respiratory failure, unspecified whether with hypoxia or hypercapnia; N17.0 Acute kidney failure with tubular necrosis; I21.4 Non-ST elevation (NSTEMI) myocardial infarction; G40.919 Epilepsy, unspecified, intractable, without status epilepticus; E87.20 Acidosis, unspecified; E72.20 Disorder of urea cycle metabolism, unspecified; E87.0 Hyperosmolality and hypernatremia; R47.01 Aphasia; K80.00 Calculus of gallbladder with acute cholecystitis without obstruction; N39.0 Urinary tract infection, site not specified; G93.40 Encephalopathy, unspecified; R62.50 Unspecified lack of expected normal physiological development in childhood; D64.9 Anemia, unspecified; D69.6 Thrombocytopenia, unspecified; E87.6 Hypokalemia; R53.81 Other malaise; I10 Essential (primary) hypertension; K40.20 Bilateral inguinal hernia, without obstruction or gangrene, not specified as recurrent; K76.9 Liver disease, unspecified; K57.30 Diverticulosis of large intestine without perforation or abscess without bleeding; D18.03 Hemangioma of intra-abdominal structures; N20.0 Calculus of kidney; R13.10 Dysphagia, unspecified; R26.9 Unspecified abnormalities of gait and mobility; Z86.61 Personal history of infections of the central nervous system; Z78.1 Physical restraint status; Z79.899 Other long term (current) drug therapy
CPT/HCPCS: 36415; 78227; 80048; 80053; 80076; 80339; 82977; 83735; 84443; 85025; 97110; 97162; 97166; 97530; 97535; A4606; A9537; J0696; J2405; J3475

== ENCOUNTER 2025-08-16 11:46 | Emergency (ER) | payer MEDICARE, MEDICAID ==
[~2025-08-16] VITALS: Ht 165.1 cm; Wt 72.0 kg
[2025-08-16 11:48] VITALS: O2SAT 96
[2025-08-16 12:53] LABS: BASOPHILS % 0.6 % (0.0-2.0); EOSINOPHILS % 6.0 % (0.0-5.0); HEMATOCRIT. 40.8 % (42.0-52.0); HEMOGLOBIN. 13.2 g/dL (14.0-18.0); LYMPHOCYTES % 33.8 % (20.0-50.0); MEAN PLATELET VOLUME 7.4 fl (7.4-10.4); MONOCYTES % 13.9 % (2.0-8.0); NEUTROPHILS % 45.7 % (40.0-76.0); PLATELET 276 x1000/uL (130-400); RED BLOOD CELL COUNT 4.95 mill/uL (4.7-6.1); RED CELL DISTRIBUTION WIDTH 16.8 % (11.6-14.6)
[2025-08-16 13:13] LABS: CREATININE 0.9 mg/dL (0.6-1.3); UREA NITROGEN BLOOD 17 mg/dL (9-23)
[2025-08-16 13:14] LABS: ETHANOL BLOOD < 10 mg/dL (<10)
[2025-08-16 15:10] VITALS: BP 131/80; PULSE 102; RESP 16; TEMP 36.9; O2SAT 97
== END 2025-08-16 15:32 | disposition home or self-care (01) ==
LOC: ER 12:34
DX: G40.909 Epilepsy, unspecified, not intractable, without status epilepticus (principal)
CPT/HCPCS: 36415; 80048; 80320; 85025; 99283; G0480